=== PATIENT | female | born 1960 | race Caucasian/White ===

== ENCOUNTER 2017-08-28 13:34 | Inpatient (IN) | payer OTHER ==
[~2017-08-28] VITALS: Ht 157.5 cm; Wt 59.0 kg
[~2017-08-28 13:34] MED LIST: KEPPRA 500 MG500 M1 PO; NOHOMEMEDICATIONS
[2017-08-28 13:37] VITALS: BP 126/51
[2017-08-28] MEDS ORDERED: TOPAMAX 25 MG T25 M1 PO (13:43)
[2017-08-28] MEDS ORDERED: PRILOSEC 20 MG20 MG PO (13:44)
[2017-08-28] MEDS ORDERED: ZANTAC 150MG T150 MG PO (13:44)
[2017-08-28 13:56] LABS: ABSOLUTE EOSINOPHILS 0.1 thou/uL (0.0-0.7); ABSOLUTE LYMPHOCYTES 0.7 thou/uL (0.8-5.3); ABSOLUTE MONOCYTES 0.8 thou/uL (0.0-1.2); BASOPHILS 0.2 %; EOSINOPHILS 1.7 %; HEMATOCRIT 37.2 % (37.0-47.0); HEMOGLOBIN 12.5 gm/dL (12.0-15.0); MCH 28.4 pg (26.0-34.0); MCHC 33.6 g/dL (28.0-37.0); MCV 84.4 fL (80.0-100.0); MONOCYTES 14.2 %; MPV 7.2 fl. (7.2-11.1); NUCLEATED RBCS 0 /100WBC; PLATELET COUNT* 152 thou/uL (150-400); POLYS 70.9 %; RDW-CV 15.8 % (10.5-14.5); WBC 5.6 thou/uL (4.0-11.0)
[2017-08-28 14:04] LABS: CALCIUM 8.7 mg/dL (8.5-10.1); POTASSIUM 4.4 mmol/L (3.5-5.1)
[2017-08-28 14:05] LABS: APTT 31.3 Seconds (25.0-31.3); INR 1.2; PROTIME 11.7 Seconds (9.20-11.50)
[2017-08-28 14:09] LABS: ALBUMIN 3.2 g/dL (3.4-5.0); TOTAL BILIRUBIN 0.7 mg/dL (<0.1-1.0); TOTAL PROTEIN 6.2 g/dL (6.4-8.2)
[2017-08-28 15:45] VITALS: BP 117/70
--- NOTE | 2017-08-28 15:57 | NUR ---
REPORT CALLED TO KAIA KYLE ON JSSI
--- NOTE | 2017-08-28 17:36 | NUR ---
ADMITTED TO ROOM 118 THIS AFTERNOON FOR SBO, FOUND ON OUTPT CT, NO DISTRESS NOTED. NG TO LIS @ 65 CM, LIGHT GREEN THIN SECRETIONS, NO NAUSEA. ASSESSMENT COMPLETE, SEE FOR DETAILS, BLADE NS @ 100 VIA LAC, DENIES PAIN, CARE PLAN DISCUSSED, UNDERSTANDS GOALS, DENIES QUESTIONS AT THIS TIME.
[2017-08-28 20:30] VITALS: BP 81/31
[2017-08-28 22:35] VITALS: BP 117/48
[2017-08-29 00:04] VITALS: BP 117/70
[2017-08-29 04:00] VITALS: BP 111/53
[2017-08-29 04:41] LABS: HEMATOCRIT 34.7 % (37.0-47.0); HEMOGLOBIN 11.7 gm/dL (12.0-15.0); MCH 28.6 pg (26.0-34.0); MCHC 33.8 g/dL (28.0-37.0); MCV 84.6 fL (80.0-100.0); MPV 7.7 fl. (7.2-11.1); RBC 4.1 mil/uL (4.20-5.00); RDW-CV 15.5 % (10.5-14.5); WBC 3.1 thou/uL (4.0-11.0)
--- NOTE | 2017-08-29 05:03 | NUR ---
PATIENT REMAINS ALERT AND ORIENTED X4 THROUGHOUT SHIFT. BLOOD PRESSURE WAS LOW AT CHANGE OF SHIFT. PHYSICIAN CONTACT AND ORDERS RECEIVED FOR A FLUID BOLUS. BLOOD PRESSURE CAME BACK UP WITH BOLUS CHARTED. IV PATENT IN THE LEFT AC INFUSING AT 125 ML/HR PER ORDERS. NPO STATUS MAINTAINED. NG IN PLACE AND MARKED AT 65 CM RUNNING ON LOW INTERMITENT SUCTION. TRANSFERS WITH STANDBY ASSIST TO THE RESTROOM. REPOSITIONING SELF IN BED. RESTING COMFORTALBY THROUGHOUT THE NIGHT. HOURLY ROUNDING COMPLETE. CALL LIGHT WITHIN REACH. NURSING WILL CONTINUE TO MONITOR.
[2017-08-29 05:21] LABS: ALBUMIN 2.9 g/dL (3.4-5.0); CALCIUM 7.9 mg/dL (8.5-10.1); CREATININE 0.8 mg/dL (0.6-1.3); MAGNESIUM 1.9 mg/dL (1.8-2.4); PHOSPHORUS* 3.2 mg/dL (2.5-4.9); TOTAL BILIRUBIN 0.3 mg/dL (<0.1-1.0); TOTAL PROTEIN 5.1 g/dL (6.4-8.2)
[2017-08-29 08:00] VITALS: BP 123/67
--- NOTE | 2017-08-29 16:40 | NUR ---
PT.IS ALERT AND ORIENTED. STATED SHE LIVES WITH HER . DOES NOT USE ANY DME. NO HX OF HOME HEALTH. SHE IS INDEPENDENT. WORKS OUTSIDE THE HOME. SHOULD NOT HAVE ANY DISCHARGE NEEDS BUT CM AVAILABLE IF NEEDED.
[2017-08-29 17:04] VITALS: BP 144/47
--- NOTE | 2017-08-29 17:19 | NUR ---
PATIENT A&OX4, ROOM AIR, IV LEFT AC FLUIDS INFUSSING. UP STAND BY, STEADY GAIT. NO C/O PIAN/N/V. NG TUBE TO LEFT NARE, CAME OUT TO 55 FROM 65. ORDERS TO CLAMP. IF TOLLERATING CLAMP OKAY TO DC. NG TUBE DC AT 1615. NO OTHER CONCERNS AT THIS TIME. APPOPRIATE AND COOPORATIVE WITH CARE.
[2017-08-29 20:45] VITALS: BP 122/65
[2017-08-30 05:24] LABS: HEMATOCRIT 35.8 % (37.0-47.0); HEMOGLOBIN 12.2 gm/dL (12.0-15.0); MCH 28.5 pg (26.0-34.0); MCHC 34.1 g/dL (28.0-37.0); MCV 83.6 fL (80.0-100.0); MPV 7.3 fl. (7.2-11.1); RBC 4.28 mil/uL (4.20-5.00); RDW-CV 15.2 % (10.5-14.5); WBC 3.4 thou/uL (4.0-11.0)
[2017-08-30 05:36] LABS: CALCIUM 8.4 mg/dL (8.5-10.1); CREATININE 0.7 mg/dL (0.6-1.3); POTASSIUM 4.3 mmol/L (3.5-5.1)
[2017-08-30 07:55] VITALS: BP 107/55
--- NOTE | 2017-08-30 08:09 | NUR ---
PATIENT HAS RESTED WELL THROUGHOUT THE NIGHT WITHOUT ANY COMPLAINTS OF PAIN. NO C/O OF NAUSEA OR VOMITING. VSS ON RA. PATIENT REMAINS NPO AT THIS TIME. PATIENT DID HAVE SMALL LOOSE STOOL X 1. IV IN LEF AC-PROCAL @ 125ML/HR. PATIENT INSTRUCTED TO USE CALL LIGHT WHEN NEEDING ASSISTANCE. HOURLY ROUNDS MADE. WILL CONTINUE WITH PLAN OF CARE AND NURSING TO MONITOR.
[2017-08-30 16:00] VITALS: BP 107/58
[2017-08-30] MEDS ORDERED: REGLAN 10 MG TA10 MG PO (16:19)
[2017-08-30] MEDS ORDERED: FLAGYL500 MG PO (16:19)
[2017-08-30 16:29] VITALS: BP 107/55
--- NOTE | 2017-08-30 17:00 | NUR ---
PATIENT DISCHARGED TO HOME. DISCHARGE PAPERS REVIEWED AND SIGNED. PRESCRIPTIONS CALLED TO PHARMACY, INFORMATION SHEETS GIVEN. IV REMOVED. PATIENT DENIES ANY FURTHER NEEDS. PATIENT TAKEN BY WHEELCHAIR TO EXIT. LEFT WITH .
--- NOTE | 2017-09-05 16:41 | CON ---
[address] [address] CONSULTATION Name: ELIZABASILIO Room: [address] IN .R.#: [id number] Admission: 08/28/17 Attend Phys: Stephanie De Leon MD Discharge: 08/30/17 Date of : 60 Report #: [id number] THIS REPORT FOR: //name// CC: Stephanie Hatch DICTATED BY: Kristi Powell [facility] DATE OF SERVICE: 08/29/2017 PRIMARY CARE PHYSICIAN: Kaitlynn Hatch DO. Please note at the time of this dictation, the patient was seen and physically examined by myself. REASON FOR CONSULTATION: Abdominal pain, nausea and vomiting. HISTORY OF PRESENT ILLNESS: This is a pleasant 57-year-old female who has a long history now dating back to likely last October. She thinks, maybe, earlier in the year, in which she has had ongoing nausea, vomiting, constipation and diarrhea as well as this abdominal discomfort that she has. She has early satiety associated with this as well, and she has had a 30-pound weight loss noted since the early fall to late summer. The patient states that when she became evaluated by consultants in Gastroenterology, Dr. Hernandez in November, she underwent an EGD and colonoscopy at that time for all of these same complaints. She was told everything was negative except that her esophagus was thickened, but that was secondary to her scleroderma. The patient states that she has these episodes of abdominal discomfort that can come and go. She has ongoing early satiety. She does have some issues with gas and bloating as well as the nausea and the vomiting. The patient states that she will go several days with no bowel movement, and then, she will have diarrhea, which is fairly consistent about every 15 minutes sometimes and too numerous to count. She denies any bright red blood or any melena in her stooling or in her emesis as well. She has now lost a total of 30 pounds with all of this. She recently saw her PCP and had a CT scan, it was questioning that she may have a possible small-bowel obstruction and after that she was sent over here for admissions. The patient states this episode started last with having ongoing diarrhea as well as some nausea and vomiting and abdominal pain. It has not let up like it usually does after several days this time. The patient also states she has been having worsening of her GERD. She currently takes omeprazole 40 in the morning and ranitidine at bedtime. She states more of her acid reflux is at night, which occurs, maybe, once or twice a week, and she has to take an additional Mylanta to help with that as well. Otherwise, she denies any [place] [address] CONSULTATION Name: CUCO KAYFederico Delgadillo Room: [address] IN [facility].#: [id number] Admission: 08/28/17 Attend Phys: Stephanie De Leon MD Discharge: 08/30/17 Date of : 60 Report #: [id number] ALLERGIES: PENICILLIN. HOME MEDICATIONS: Include omeprazole, ranitidine and Topamax. PAST MEDICAL HISTORY: CREST syndrome, sick sinus syndrome and headaches. PAST SURGICAL HISTORY: She has had a with a hysterectomy. FAMILY HISTORY: Negative for any GI or female cancers. Father has diabetes. SOCIAL HISTORY: Nonsmoker, nondrinker and lives alone. REVIEW OF SYSTEMS: Twelve-point review of systems is essentially negative except what is mentioned in the HPI. PHYSICAL EXAMINATION: VITAL SIGNS: Temperature 37.1, pulse 72, respirations 18, blood pressure 123/67. HEART: Regular rate and rhythm. LUNGS: Clear. ABDOMEN: Soft, positive bowel sounds in all 4 quadrants, with some generalized tenderness noted in the lower quadrants. LABORATORY DATA: Hemoglobin on admission was 12.5, she is 11.7 today. Hematocrit 34.7, white count is 3.1. Platelets 125, on admission, she was 152. Sodium 141, potassium 4, chloride 110, CO2 of 22, BUN is 13, creatinine 0.8, GFR is 74, glucose is 87. LFTs are normal. Total protein is 5.1 and albumin is 2.9. PT is 11.7, INR is 1.2. The patient had ultrasound of her abdomen, it showed sludge noted in her gallbladder, splenomegaly and slight prominent CBD. Abdominal x-ray on admission showed nonobstructive bowel gas pattern and her NG was in place. CT showed dilated small bowel loops prominent as well as prominent iliac chain of lymph nodes, the largest being on the left. IMPRESSION: 1. Nausea and vomiting. 2. Abdominal pain, small-bowel obstruction. 3. Early satiety. 4. Gastroesophageal reflux disease, worsening despite current treatment. 5. Constipation and diarrhea. 6. Weight loss total of 30 pounds. 7. History of CREST. 8. Thrombocytopenia. PLAN: 1. MRCP today due to her dilated CBD noted on ultrasound. 2. Obtain records from [facility] regarding her EGD and [place] [address] CONSULTATION Name: BASILIO KAY Room: [address]#: [id number] Admission: 08/28/17 Attend Phys: Stephanie De Leon MD Discharge: 08/30/17 Date of : 60 Report #: [id number] last November for the same symptoms. 3. Consider once her NG is out for her complaint of early satiety. 4. Further recommendations to be made once the above have been reviewed. Thank you for allowing us to participate in this patient's care. Please do not hesitate to call with any questions in regard to this consult. ADDENDUM This is a 57-year-old female who presents with partial small-bowel obstruction. The patient has history of CREST and has had symptoms of nausea and vomiting for the past couple of years. Per imaging, she has dilated small bowel. Despite taking omeprazole and Zantac, she continues to have GERD symptoms. She also has symptoms of intermittent constipation and diarrhea and has lost 30 pounds in the last year. Since hospitalization, the patient had imaging suggestive of dilated common bile duct and some gallbladder sludge. We will consider MRCP to further evaluate this. The patient's nausea, vomiting and early satiety, which may also contribute to weight loss may be secondary to gastroparesis and slowing of the motility of the small bowel secondary to CREST. We will consider a gastric emptying test to further evaluate this. Finally, the patient has had endoscopic evaluation by [facility] in the last 8 months. We will obtain the records to further review and assist the patient. <ELECTRONICALLY SIGNED> By: Clifford Perkins MD 09/05/17 3541 [id number] 1240Clifford Perkins MD /bethany
== END 2017-08-30 17:00 | disposition home or self-care (01) | DRG 546 ==
LOC: M.TBA-ER 14:11 → M.ORTHSURG 14:11
PROVIDERS: Nurse Practitioner Family; ADMIT Internal Medicine
DX: M34.9 Systemic sclerosis, unspecified (principal); K56.600 Partial intestinal obstruction, unspecified as to cause; E44.1 Mild protein-calorie malnutrition; D61.818 Other pancytopenia; M34.1 CR(E)ST syndrome; K83.8 Other specified diseases of biliary tract; K21.9 Gastro-esophageal reflux disease without esophagitis; R56.9 Unspecified convulsions; K59.00 Constipation, unspecified; R63.4 Abnormal weight loss; D69.6 Thrombocytopenia, unspecified; Z88.0 Allergy status to penicillin; Z79.899 Other long term (current) drug therapy; Z90.710 Acquired absence of both cervix and uterus; Z68.23 Body mass index [BMI] 23.0-23.9, adult; Z83.3 Family history of diabetes mellitus

== ENCOUNTER 2019-10-13 11:52 | Emergency (ER) | payer OTHER ==
[~2019-10-13] VITALS: Ht 157.5 cm; Wt 64.0 kg
[~2019-10-13 11:52] MED LIST changes: +FLAGYL500 MG PO; +PRILOSEC 20 MG20 MG PO; +REGLAN 10 MG TA10 MG PO; +TOPAMAX 25 MG T25 M1 PO; +ZANTAC 150MG T150 MG PO
[2019-10-13] MEDS ORDERED: NORVASC 2.5 MG2.5 M1 PO (12:07)
[2019-10-13 12:30] LABS: ABSOLUTE BASOPHILS 0.1 thou/uL (0.0-0.2); ABSOLUTE EOSINOPHILS 0.3 thou/uL (0.0-0.7); ABSOLUTE LYMPHOCYTES 0.8 thou/uL (0.8-5.3); ABSOLUTE MONOCYTES 0.6 thou/uL (0.0-1.2); ABSOLUTE NEUTROPHILS 3.7 thou/uL (1.6-8.1); BASOPHILS 1.1 %; EOSINOPHILS 4.7 %; HEMATOCRIT 32.8 % (37.0-47.0); HEMOGLOBIN 11.5 gm/dL (12.0-15.0); LYMPHOCYTES 14.7 %; MCH 28.6 pg (26.0-34.0); MCHC 34.9 g/dL (28.0-37.0); MCV 81.9 fL (80.0-100.0); MONOCYTES 10.8 %; MPV 6.8 fl. (7.2-11.1); NUCLEATED RBCS 0 /100WBC; PLATELET COUNT* 198 thou/uL (150-400); POLYS 68.7 %; RBC 4.01 mil/uL (4.20-5.00); RDW-CV 14.9 % (10.5-14.5); WBC 5.4 thou/uL (4.0-11.0)
[2019-10-13 12:40] LABS: CALCIUM 8.8 mg/dL (8.5-10.1); CREATININE 1.5 mg/dL (0.6-1.3); POTASSIUM 4.5 mmol/L (3.5-5.1)
[2019-10-13 12:45] LABS: ALBUMIN 3.6 g/dL (3.4-5.0); TOTAL BILIRUBIN 0.3 mg/dL (<0.1-1.0); TOTAL PROTEIN 6.1 g/dL (6.4-8.2)
[2019-10-13] MEDS ORDERED: KEFLEX500 M1 PO (13:07)
[2019-10-13 13:16] VITALS: BP 133/61
--- NOTE | 2019-10-14 16:21 | EKG ---
[place] [address] ELECTROCARDIOGRAM REPORT Name: ELIZABASILIO Room: [facility]#: [id number] Admission: 10/13/19 Attend Phys: Discharge: 10/13/19 Date of : 60 Date of Service: 10/13/19 1213 Report #: [id number] THIS REPORT FOR: //name// [facility] ED Test Date: 2019-10-13 Test Time: 12:13:24 Pat Name: BASILIO KAY Department: Room: Gender: F Nurse Ob: TERESE : 1960 Requested By: Jie Schrader Order Number: [id number] MD: Norm Enamorado Measurements Intervals [place] Rate: 66 P: 7 WY: 188 QRS: 50 QRSD: 98 T: 46 QT: 418 QTc: 438 Interpretive Statements Sinus rhythm Borderline low voltage, extremity leads Abnormal R-wave progression, early transition Minimal ST elevation, anterolateral leads probably normal variant Compared to ECG 06/02/2015 14:09:18 ST (T wave) deviation now present Electronically Signed On 10-14-2019 16:21:43 CDT by Norm Enamorado [email or web address] <ELECTRONICALLY SIGNED> By: Norm Enamorado MD, FAC 10/14/19 1621 1213 1213 Norm Enamorado MD, FAC /EPI
== END 2019-10-13 13:18 | disposition home or self-care (01) ==
LOC: M.ERS 11:52
PROVIDERS: Physician Assistant
DX: M79.622 Pain in left upper arm (principal); R59.1 Generalized enlarged lymph nodes; Z95.0 Presence of cardiac pacemaker; Z88.0 Allergy status to penicillin

== ENCOUNTER → 2020-12-06 | Outpatient (CLI) | payer OTHER ==
[~2020-12-06] MED LIST changes: +KEFLEX500 M1 PO; +NORVASC 2.5 MG2.5 M1 PO
[2020-12-06 12:54] LABS: CREATININE 1.1 mg/dL (0.6-1.3)
== END ==
LOC: M.CT 10:33 → M.ULTRA 11:00 → M.CT 11:14 → M.ULTRA 11:14
PROVIDERS: ATTEND Family Medicine
DX: R59.0 Localized enlarged lymph nodes (principal); R06.02 Shortness of breath; M79.604 Pain in right leg; J98.11 Atelectasis; R16.1 Splenomegaly, not elsewhere classified; J90 Pleural effusion, not elsewhere classified

== ENCOUNTER → 2020-12-27 | Day surgery (SDC) | payer OTHER ==
[~2020-12-27] MED LIST changes: +HYDROXYCHLOROQ300 MG PO; +IRON325 M1 PO; +NORVASC5 MG PO; +PROTONIX 20 MG20 MG PO
[2020-12-27 07:22] LABS: HEMATOCRIT 28.7 % (37.0-47.0); HEMOGLOBIN 9.2 gm/dL (12.0-15.0); MCH 23.5 pg (26.0-34.0); MCHC 31.9 g/dL (28.0-37.0); MCV 73.6 fL (80.0-100.0); MPV 6.4 fl. (7.2-11.1); RBC 3.9 mil/uL (4.20-5.00); RDW-CV 19.4 % (10.5-14.5); WBC 6.2 thou/uL (4.0-11.0)
[2020-12-27 07:28] LABS: CALCIUM 8.3 mg/dL (8.5-10.1); CREATININE 1.3 mg/dL (0.6-1.3); POTASSIUM 4.7 mmol/L (3.5-5.1)
--- NOTE | 2020-12-27 12:56 | EKG ---
[place] [address] ELECTROCARDIOGRAM REPORT Name: BASILIO KAY Room: [facility]#: [id number] Admission: 12/27/20 Attend Phys: Claudio Cantu Discharge: Date of : 60 Date of Service: 12/27/20 0750 Report #: [id number] THIS REPORT FOR: //name// [facility] Test Date: 2020-12-27 Test Time: 07:50:57 Pat Name: BASILIO KAY Department: Room: Gender: F Academic Director: SCOBB : 1960 Requested By: Claudio Mims Order Number: [id number] MD: Norm Enamorado Measurements Intervals [place] Rate: 62 P: 229 DC: 162 QRS: 59 QRSD: 85 T: 209 QT: 611 QTc: 621 Interpretive Statements Sinus or ectopic atrial rhythm Probable left atrial enlargement Low voltage, extremity leads Nonspecific T abnormalities, lateral leads Prolonged QT interval Compared to ECG 10/13/2019 12:13:24 Ectopic atrial rhythm now present T-wave abnormality now present Prolonged QT interval now present Electronically Signed On 12-27-2020 12:56:02 CERTIFIED FIRST ASSISTANT by Norm Enamorado [email or web address] <ELECTRONICALLY SIGNED> By: Norm Enamorado MD, [facility] 12/27/20 1256 0750 0750 Norm Enamorado MD, [facility] /EPI
--- NOTE | 2021-01-10 12:06 | PATH ---
[address] [address] PATHOLOGY RPT PROCEDURE Name: BASILIO KAY Room: [facility]..#: [id number] Admission: 12/27/20 Date of : 60 Discharge: Report #: [id number] Path Case #: [id number] [facility] Accession Number: [id number] . 01 Material submitted: . groin - RIGHT GROIN MASS. Modifiers: right . 01 Clinical history: . BIOPSY LYMPH NODE ENLARGED LYMPH NODE . 01 Frozen section diagnosis: . . /AZJ . 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 (SEE COMMENT) (CLW:isamar; 01/05/2021) . . Special studies report received from [facility], [address] [place] [address], [address], [place], [address], on case [id number], labeled with their number [id number], dated 12/29/2020. . Flow Cytometry: Hematologic Neoplasia Assessment . Clinical History Right groin mass, enlarged lymph nodes . Indication For Study Evaluation for hematolymphoid neoplasia . Specimen Tissue, Right Groin . Viability 37% (7AAD exclusion) . Interpretation Tissue, Right Groin: CD5+ monotypic (kappa) B-cell population detected (8.5% of sample) (see comments) . Comments The flow cytometry results are compatible with a CD5+ B-cell lymphoproliferative disorder and may represent mantle cell lymphoma. In the absence of CCND1/IGH (FISH) positivity or cyclin D1 positivity ([facility], [place] [address] PATHOLOGY RPT PROCEDURE Name: BASILIO KAY Room: [facility].#: [id number] Admission: 12/27/20 Date of : 60 Discharge: Report #: [id number] Path Case #: [id number] auto claim representative paraffin-embedded sample), these results may represent an atypical/ immunophenotypic variant of B-cell small lymphocytic lymphoma/ chronic lymphocytic leukemia (infrequently, mantle cell lymphoma may be CCND1/ cyclin D1 negative) (marginal zone lymphoma and lymphoplasmacytic lymphoma are infrequently CD5+). Correlation with all available clinical, laboratory, and morphologic data is necessary. If needed, FISH testing (CCND1/IGH or CLL panel) is available. Please contact us if further testing for this sample is needed. Populations Analyzed . Populations Analyzed Abnormal B-cells: 8.5% Scatter properties compatible with small to intermediate cell size, cells characterized as: CD45+, CD19+, CD20+, CD5+, CD10-, CD23-, FMC7+, CD30-, CD38-/+, CD43-, HLA DR+, sIg kappa+ Remaining 30.5% B-cells: 0.5%, polytypic/polyclonal sIg light Lymphocytes: chain pattern T-cells: no significant abnormalities of the markers tested CD4:CD8: 2.2 NK cells: 0.3% CD45 Negative 60% No significant reactivity with the markers tested Events/Debris: (may represent non-hematolymphoid cells, degenerated cells, debris, unlysed red blood cells, etc.) . Morphologic Evaluation A slide was reviewed for auditor/quality purposes only. . Specimen Description Total Cell Yield: 14.32 X 10 and 6 . Pertinent Prior Test Results Received Date Test Type Specimen Type Result 12/13/2020 Virtual Studies - Tissue Result Number: Level 1 [id number] 12/09/2020 Flow Cytometry Tissue Result Number: [id number] See Report . Reagent(s) Used CD2, CD3, CD4, CD5, CD7, CD8, CD10, CD11b, CD19, CD20, CD23, CD30, CD38, CD43, CD45, CD56, CD57, FMC-7, HLA-DR, kappa, lambda . at [employer]. Chu Bejarano MD [place] [address] PATHOLOGY RPT PROCEDURE Name: BASILIO KAY Room: [facility].#: [id number] Admission: 12/27/20 Date of : 60 Discharge: Report #: [id number] Path Case #: [id number] Intended Use Flow cytometry is optimally used to immunophenotypically characterize abnormal populations when they are detected. Negative flow cytometry results do not exclude lymphoma or neoplasia. Possible false negative flow cytometry results may occur in, but are not limited to, the following: neoplastic cells in Hodgkin lymphoma are not typically adequately represented by routine clinical flow cytometry; neoplastic cells may be lost or inadequately represented due to degeneration, sample processing, sampling artifact, or patchy involvement; plasma cells are typically underrepresented by flow cytometry; immature cells/blasts may be underrepresented due to hemodilution; myeloproliferative disorders and low grade myelodysplasia may not have immunophenotypic abnormalities or increased blasts. Correlation with all available clinical, laboratory, and morphologic data is always necessary to assess for the possibility of false negative flow cytometry results and to establish a diagnosis. Each marker in this analysis was used to assess for potential antigenic abnormalities or to evaluate detected abnormalities. . Any image or images that accompany this report are auto claim representative images only and should not be used to render a diagnosis. . Disclaimer(s) This test was developed and its performance characteristics determined by [employer], [employer]. It has not been cleared or approved by the Food and Drug Administration. . Performing [facility] is a business unit of [employer] a wholly-owned subsidiary of [employer]. . This test was performed at [facility]. at [address], [address] - Oxyacetylene Welder: Angel Mccormick MD. . For inquiries, the physician may contact Lab: [phone] . A complete copy of the report is on file. . Professional services performed by [employer]. at [address], [place] [address]. Technical services performed by [employer]. at [address], [place] [address]. . (CLW:lissette 12/30/2020) . [place] 01/05/2021 [address] . [address] [place] [address] PATHOLOGY RPT PROCEDURE Name: BASILIO KAY Room: [facility]#: [id number] Admission: 12/27/20 Date of : 60 Discharge: Report #: [id number] Path Case #: [id number] Comment: Sections show fragments of lymph node with effaced lymph node architecture. From low power there is a nodular quality. The nodules are composed predominantly of small to medium sized lymphoid cells with condensed nuclear chromatin and scant to moderate cytoplasm. Numerous admixed histiocytes are present. Scattered larger lymphoid cells are also noted; however, there is not a diffuse monotonous population of large atypical lymphoid cells. There is neither a high mitotic rate nor abundant single cell necrosis. Geographic necrosis is not present. The lymph node capsule is focally fibrotic with extension of the lymphocytes into the adjacent adipose tissue. Occasional multinucleated giant cells are noted. . To confirm the flow cytometry findings and to identify cells in a tissue architecture context, properly controlled immunohistochemical stains are performed. Block A2: CD20 - Stains the neoplastic B-cells along the outside edges of the nodules as well as scattered larger lymphoid cells; PAX-5 - Stains the neoplastic B-cells around the nodules; CD3 - Stains numerous admixed T-cells; CD5 - Stains numerous admixed T-cells, weakly stains the neoplastic B-cells; CD43 - Stains the T-cells, no B-cell co-expression; CD10 - Stains rare scattered cells within the nodules; BCL6 - Focal areas of reactivity in both B-cells and possible T-cells; BCL2 - Highlights the T-cells predominantly; CD23 - Stains expanded follicular dendritic cell meshworks; CD21 - Stains expanded follicular dendritic cell meshworks; MUM1 - Stains scattered cells within the nodules; Cyclin D1 - Stains rare scattered cells, lacks diffuse nuclear staining;' Ki-67 - Increased staining within the neoplastic B-cells and atypical T-cells (overall proliferative index approximately 50%); CD30 - Stains very rare scattered cells; CD15 - Highlights scattered granulocytes predominantly within blood vessels; CD68 - Stains numerous admixed histiocytes; CD4 - Stains numerous admixed histiocytes and T-cells, CD57 - Focal mildly increased staining; ALK1 - Nonreactive; AE1/AE3 - Nonreactive; CD138 - Stains very rare scattered plasma cells; [place] and lambda in situ hybridization - Plasma cells appear polytypic, suggestion of possible B-cell kappa restriction. . Flow cytometric immunophenotypic analysis was performed at [facility]. The interpretation is "CD5 positive monotypic (kappa) B-cell population detected 8.5% of sample). There are 8.5% abnormal B-cells that are small to intermediate in cell size and characterized as CD45 pos, CD19 [place] [address] PATHOLOGY RPT PROCEDURE Name: ELIZABASILIO Room: [facility]#: [id number] Admission: 12/27/20 Date of : 60 Discharge: Report #: [id number] Path Case #: [id number] pos, CD20 pos, CD20 pos, CD5 pos, CD10 neg, CD23 neg, FMC7 pos, CD30 neg, CD38 neg/pos, CD43 neg, HLA-DR pos, and surface kappa pos. There are 30.5% remaining lymphocytes. Of the remaining lymphocytes, there are 0.5% polyclonal B-cells. T-cells have a CD4/CD8 ratio of 2.2 and no aberrant T-cell antigen expression. Please see separate flow cytometry report from [facility] ([id number]). . Overall the diagnosis is involvement of the right groin lymph node with B-cell lymphoma and a corresponding atypical T-cell/histiocytic process. The differential diagnosis includes marginal zone lymphoma and cyclin D1 negative mantle cell lymphoma. The clinical significance of the atypical T-cell/histiocyte process is unclear. It may be reactive cells to the B cell lymphoma; however a T-cell lymphoma with corresponding monoclonal B-cell population cannot be entirely excluded. The case is being sent to [facility] for outside consultation. An addendum report will follow. . The case is co-reviewed with Dr. Isaac Zuniga who agrees on 01/04/2021. The case was discussed with Dr. Wilder Ewing on 01/04/2021 at approximately 15:30. Clinical and radiographic correlation is required. (CLW:pit; 12/29/2020) . 02 Electronically signed: . Frances Jackson MD, Pathologist NPI- [id number] . 01 Gross description: . The specimen is received in formalin, labeled "Eliza, Basilio, right groin mass (pathology)" and consists of a previously partially sectioned lucas-lucas rubbery irregular tissue (2.8 x 2.6 x 1.7 cm) with a minimal amount of attached fat. Sectioning reveals lucas-pink and centrally flores to pale yellow glistening cut surfaces. Two touch preps are made. The specimen is serially sectioned and submitted sequentially, entirely in A1-A9. Also received fresh in RPMI is pink-lucas tissue (approximately 1.8 x 1.3 x 1.0 cm). This portion of the specimen is sent out for flow cytometry. (COCOPAH; 12/27/2020) DKA/DKA 01/05/2021 33 Local . 02 Pathologist provided ICD-10: C85.15 . 02 CPT . 800940, F51633, G39768, 120790, D91249, A13241 Specimen Comment: A courtesy copy of this report has been sent to [phone], [phone] Specimen Comment: [id number] Specimen Comment: Report sent to / DR REARDON Specimen Comment: A duplicate report has been generated due [place] [address] PATHOLOGY RPT PROCEDURE Name: BASILIO KAY Room: [facility].#: [id number] Admission: 12/27/20 Date of : 60 Discharge: Report #: [id number] Path Case #: [id number] Performed at: 01 [facility] [address] [facility] [address], [place] [id number] MD Abel Kowalski MD Phone: [phone] Performed at: 02 [facility] [place] [address] [place] [id number] MD Frances Jackson MD Phone: [phone]
--- NOTE | 2021-01-10 12:28 | OP ---
[facility] [address] [place] [address] OPERATIVE REPORT Name: BASILIO KAY Room: [facility].#: [id number] Admission: 12/27/20 Attend Phys: Claudio Mims Discharge: Date of : 60 Report #: [id number] THIS REPORT FOR: cc: Kaitlynn Hatch Linda J. DO Patterson,Claudio York MD ~ DATE OF SURGERY: 12/27/2020 PREOPERATIVE DIAGNOSIS: Malignant mass of right groin, lymphadenopathy. POSTOPERATIVE DIAGNOSIS: Malignant mass of right groin, lymphadenopathy. OPERATION: Excision of right groin lymph node, deep. SURGEON: Claudio Mims MD ANESTHESIA: General. ESTIMATED BLOOD LOSS: Minimal. SPECIMENS: Right groin lymph node. DESCRIPTION OF PROCEDURE: After informed consent was obtained, the patient was brought to the operating room and placed supine. SCDs were placed and working, preoperative antibiotics were administered, general anesthesia was induced. The right groin was prepped and draped in the usual sterile fashion. A 3 cm incision was made over the palpable lesion 2 cm below the right inguinal crease. Dissection was made down through the subcutaneous tissue. The lymph node measured approximately 2 x 1 cm. It was carefully dissected around with cautery. The pedicle was ligated using a 3-0 Vicryl suture. The lymph node was then sent off as specimen. The incision was closed in 2 layers using 3-0 Vicryl for the deep layer and 4-0 Monocryl in a running subcuticular fashion for the skin. The incision was dressed with Steri-Strips and gauze. COMPLICATIONS: None. DISPOSITION: The patient was taken to recovery in satisfactory condition. <ELECTRONICALLY SIGNED> By: Claudio Mims MD 01/10/21 1228 [id number] Mims MD /nt
== END | disposition home or self-care (01) ==
LOC: M.SUR 06:51
PROVIDERS: ATTEND Surgery
DX: R59.0 Localized enlarged lymph nodes (principal); C85.15 Unspecified B-cell lymphoma, lymph nodes of inguinal region and lower limb; Z98.890 Other specified postprocedural states; Z79.899 Other long term (current) drug therapy; Z20.822 Contact with and (suspected) exposure to COVID-19; Z88.0 Allergy status to penicillin; Z95.0 Presence of cardiac pacemaker

== ENCOUNTER 2021-03-06 21:30 | Emergency (ER) | payer OTHER ==
[~2021-03-06] VITALS: Ht 154.9 cm; Wt 56.2 kg
[2021-03-06] MEDS ORDERED: ALLOPURINOL 30300 M1 PO (21:57)
[2021-03-06 22:46] LABS: HEMATOCRIT 35.4 % (37.0-47.0); HEMOGLOBIN 11.4 gm/dL (12.0-15.0); MCH 25.4 pg (26.0-34.0); MCHC 32.2 g/dL (28.0-37.0); MCV 78.9 fL (80.0-100.0); MPV 6.2 fl. (7.2-11.1); NUCLEATED RBCS 0 /100WBC; PLATELET COUNT* 209 thou/uL (150-400); RBC 4.49 mil/uL (4.20-5.00); WBC 10.3 thou/uL (4.0-11.0)
[2021-03-06 22:53] LABS: CALCIUM 8.1 mg/dL (8.5-10.1); CREATININE 0.8 mg/dL (0.6-1.3); POTASSIUM 3.8 mmol/L (3.5-5.1)
[2021-03-06 22:58] LABS: ALBUMIN 2.5 g/dL (3.4-5.0); TOTAL BILIRUBIN 0.3 mg/dL (<0.1-1.0); TOTAL PROTEIN 4.8 g/dL (6.4-8.2)
[2021-03-06 23:26] LABS: INFLUENZA A ANTIGEN Negative (Negative)
[2021-03-07 00:02] LABS: ESR (SEDRATE) 8 mm/hr (0-30)
[2021-03-07 00:10] LABS: ABSOLUTE LYMPHOCYTES 0.6 thou/uL (0.8-5.3); ABSOLUTE MONOCYTES 0.3 thou/uL (0.0-1.2); ABSOLUTE NEUTROPHILS 9.4 thou/uL (1.6-8.1); CLUMPED PLTS FEW; PLATELET ESTIMATE ADEQUATE; TOXIC GRANULATION 1+
[2021-03-07 00:11] LABS: ANISOCYTOSIS 2+; MACROCYTES 1+; OVALOCYTES 1+; SCHISTOCYTES Occasional; TEARDROPS Occasional
[2021-03-07 00:12] LABS: POLYCHROMASIA 1+
[2021-03-07] MEDS ORDERED: PREDNISONE50 MG PO (00:29)
[2021-03-07] MEDS ORDERED: CEPHALEXIN500 MG PO (00:30)
[2021-03-07 01:35] VITALS: BP 137/54
== END 2021-03-07 01:37 | disposition home or self-care (01) ==
LOC: M.ERS 21:30
PROVIDERS: Personal Emergency Response Attendant
DX: U07.1 COVID-19 (principal); C85.88 Other specified types of non-Hodgkin lymphoma, lymph nodes of multiple sites; L95.9 Vasculitis limited to the skin, unspecified; J10.1 Influenza due to other identified influenza virus with other respiratory manifestations; Z79.899 Other long term (current) drug therapy; Z88.0 Allergy status to penicillin